=== PATIENT | female | born 1965 | race Caucasian/White ===

== ENCOUNTER 2016-08-30 11:27 | Day surgery (SDC) | payer OTHER ==
[~2016-08-30] VITALS: Ht 160 cm; Wt 88.6 kg
[~2016-08-30 11:27] MED LIST: ASPI-664 PO; HUM100VI14 SC; LOSA50TA6 PO; METF1000 PO; METO50TA16 PO; SIMV-39 PO
[2016-08-30 12:40] VITALS: Ht 160 cm; Wt 88.6 kg
[2016-08-30] MEDS ORDERED: HYDR25SU23 PR (12:44)
[2016-08-30] MEDS ORDERED: PROPOFOL 20 ML ONE (13:01)
[2016-08-30 13:08] VITALS: BP 137/69; PULSE 85; RESP 20
--- NOTE | 2016-08-30 13:53 | GILP ---
DATE OF PROCEDURE: 08/30/2016 NAME OF PROCEDURE: Esophagogastroduodenoscopy and biopsy. SURGEON: Angelina Culver MD PREOPERATIVE DIAGNOSIS: Chronic heartburn. POSTOPERATIVE DIAGNOSES: 1. Reflux esophagitis with erosions. 2. Gastritis with erosions. 3. Gastric mucosal biopsies were taken for Helicobacter pylori test. 4. Superficial duodenal ulcer. INDICATION FOR THE PROCEDURE: Ms. Elma Contreras is a 51-year-old female patient who had chronic heart burn, not responding to therapy. The patient was scheduled for endoscopic examination for further e valuation. The procedure and possible complications were well explained to the patient and she understood and c onsented to the procedure. DESCRIPTION OF PROCEDURE: Under the influence of anesthesia, the gastroscope was carefully introduc ed into the esophagus and under direct vision, it was advanced to the stomach and through the pyloru s into the duodenal bulb and descending duodenum. FINDINGS: ESOPHAGUS: The patient had reflux esophagitis with erosions. STOMACH: She had gastritis with erosions. Gastric mucosal biopsies were taken for H. pylori test. DUODENUM: The patient had superficial duodenal bulb ulcer. She tolerated the procedure very well and there was no complication from the procedure. At the end of the procedure, she was awake with stable vital signs and she was discharged home to the care of h er family. IMPRESSION: Please see postoperative diagnoses. PLAN: 1. Omeprazole 40 mg p.o. q.a.m. 2. Await H. pylori test report. Dictated By: ANGELINA VALDEZ/ESTEPHANIA Conf#: [id number] DID#: [id number] CC: ANGELINA CULVER MD;*EndCC*
[2016-08-30 13:55] VITALS: BP 137/64; PULSE 75; RESP 16
== END 2016-08-30 15:55 | disposition home or self-care (01) ==
LOC: GIL 11:27
PROVIDERS: ATTEND Internal Medicine Gastroenterology
DX: K21.0 Gastro-esophageal reflux disease with esophagitis (principal); K29.60 Other gastritis without bleeding; K26.9 Duodenal ulcer, unspecified as acute or chronic, without hemorrhage or perforation; E11.9 Type 2 diabetes mellitus without complications; E78.5 Hyperlipidemia, unspecified; F41.9 Anxiety disorder, unspecified; E66.9 Obesity, unspecified; Z68.34 Body mass index [BMI] 34.0-34.9, adult
CPT/HCPCS: 43239; 82962; 84703; 87081; Z7610

== ENCOUNTER 2016-10-17 08:34 | Day surgery (SDC) | payer OTHER ==
[~2016-10-17] VITALS: Ht 160 cm; Wt 87.8 kg
[~2016-10-17 08:34] MED LIST changes: +HYDR25SU23 PR
[2016-10-17 09:24] VITALS: Ht 160 cm; Wt 87.8 kg
[2016-10-17] MEDS ORDERED: SIMVASTATIN (09:30)
[2016-10-17] MEDS ORDERED: PEPCID (09:30)
[2016-10-17] MEDS ORDERED: MIDAZOLAM 1 MG/ML 2 ML INJ ONE (09:39)
[2016-10-17] MEDS ORDERED: PROPOFOL 20 ML ONE ×2 (09:42)
[2016-10-17 09:56] VITALS: BP 139/66; PULSE 77; RESP 14
[2016-10-17 10:50] VITALS: BP 137/84; PULSE 76; RESP 14
--- NOTE | 2016-10-18 12:50 | GILP ---
DATE OF PROCEDURE: 10/17/2016 SURGEON: Brian Key MD PROCEDURE PERFORMED: Colonoscopy with biopsy and polypectomy. PREOPERATIVE DIAGNOSES: 1. Rectal bleeding. 2. Screening colonoscopy. POSTOPERATIVE DIAGNOSES: 1. Colonoscopy all the way to the cecum. 2. Sigmoid colon polyp was removed using the snare and electrocautery. 3. A small rectal polyp was removed using the biopsy forceps. 4. Internal hemorrhoids. INDICATION: The patient is a 51-year-old female who had rectal bleeding. She never had a screening colonoscopy. The procedure and possible complications were well explained to the patient. She understood and consented to the procedure. DESCRIPTION OF PROCEDURE: Under influence of anesthesia, the colonoscope was carefully introduced in the rectum. Under direct vision it was advanced all the way to the cecum. FINDINGS: There is mild colon polyp and it was removed using the snare and electrocautery. She also had a small rectal polyp and it was removed using the biopsy forceps. She was noted to have internal hemorrhoids. She tolerated the procedure very well, and there is no complications from the procedure. At the end of procedure she was awake, with stable vital signs and she was discharged home to the care of her family. IMPRESSION: Please see postop diagnoses. PLAN: 1. Await histopathology report. 2. Anusol HC 2.5 percent cream every night at bedtime as needed. 3. Next screening colonoscopy in 5 years. Dictated By: MD COURTNEY Brasher/olivia/tiffany /Document#: [id number] CC: Brian Key MD;*[facility]*
== END 2016-10-17 12:16 | disposition home or self-care (01) ==
LOC: GIL 08:34
PROVIDERS: ATTEND Internal Medicine Gastroenterology
DX: Z12.11 Encounter for screening for malignant neoplasm of colon (principal); K62.1 Rectal polyp; D12.5 Benign neoplasm of sigmoid colon; K64.8 Other hemorrhoids; E11.9 Type 2 diabetes mellitus without complications; I10 Essential (primary) hypertension
CPT/HCPCS: 43239; 45380; 45385; 82962; 84703; 88305; J2250; Z7610

== ENCOUNTER 2017-10-25 07:06 | Day surgery (SDC) | END 2017-10-25 11:48 | disposition home or self-care (01) ==